=== PATIENT | female | born 1990 | race Hispanic/Latino ===

== ENCOUNTER 2017-07-27 06:22 | Day surgery (SDC) | payer OTHER ==
[~2017-07-27] VITALS: Ht 182.9 cm; Wt 145.6 kg
[~2017-07-27 06:22] MED LIST: CEPHALEXIN500 MG PO; DOXYCYCLINE HY100 MG PO; FLAGYL500 MG PO; IBUPROFEN600 MG PO; MOTRIN IB200 MG PO; NORCO 5-325 TA1 EACH PO; PERCOCET 5-3251 EACH PO
--- NOTE | 2017-07-27 07:01 | NUR ---
DOPPLER FOR FHTS 134 TO 154 MOSTLY. TO R OF UMBILICUS.
--- NOTE | 2017-07-27 10:38 | NUR ---
07/27/17 1038 Ivy Souza 0954 RESP EVEN AND UNLABORED. 1000 PT GIVEN SUPPOSITORY MEDICAITON PER EMAR AND MOVED UP IN BED WITH RN HELP. 1038 PT TALKING AND AWAKE. VSS. HEADED TO ELEAZAR.
[2017-07-27] MEDS ORDERED: NORCO 5-325 TA1 EACH PO (12:10)
[2017-07-27] MEDS ORDERED: INDOMETHACIN50 MG PO (12:11)
--- NOTE | 2017-07-27 13:05 | NUR ---
1255 AMB TO BR HAS SMALL AMT BLEEDING, GAVE LANA PAD. VOIDS 400MLS SLIGHTLY PINK TINGED. WANTS TO GO HOME. RATES PAIN 3/10. ONLY SORE BACK FROM SPINAL. IT HAS RESOLVED.
--- NOTE | 2017-07-27 13:07 | NUR ---
AT 1220 FHTS AT 150 S
--- NOTE | 2017-08-10 09:05 | OR ---
[facility] [address], [place] [address] Signed DATE OF OPERATION: 07/27/2017 SURGEON: Clarissa Barlow MD EXHIBITS CURATOR: Dr. Peng. PREOPERATIVE DIAGNOSES: Incompetent cervix, at 17 weeks and 5 days, and morbid obesity. POSTOPERATIVE DIAGNOSES: Incompetent cervix, at 17 weeks and 5 days, and morbid obesity. PROCEDURE: Darden cerclage. ANESTHESIA: Spinal with sedation. ESTIMATED BLOOD LOSS: 20 mL. DRAINS: None. INDICATIONS AND FINDINGS: The patient is a 26-year-old female, 2, para 0-0-1-0, who has had a previous loss at 19 weeks, who is being followed closely during this because of her history. Ultrasound was done yesterday, which showed a shortened cervix at 2.2 cm with some funneling. Because of her history and the shortening and funneling of the cervix, it was felt that she did carry the diagnosis of cervical incompetence. It was felt that cerclage at this juncture was indicated. The risks of the procedure were thoroughly discussed and the patient concurred with the decision. At the time of surgery, exam under anesthesia revealed a cervix, which was somewhat shortened at about 50% effaced, but closed and soft. DESCRIPTION OF PROCEDURE: The patient was prepped and draped in the dorsal lithotomy position. A weighted speculum was placed and this was a swan neck speculum given the patient's morbid obesity. The anterior and posterior lips of the cervix were grasped with ring forceps. Electronically Signed By: CLARISSA BARLOW MD 08/10/17 0905 PATIENT NAME: NEEMA DO OPERATIVE REPORT DATE OF : 89 PHYSICIAN: CLARISSA BARLOW MD REPORT #: [id number] REPORT IS CONFIDENTIAL AND NOT TO BE RELEASED WITHOUT AUTHORIZATION [facility] [address] [place] [id number] Signed A 3 mm Mersilene band was then placed in a pursestring manner beginning at 12 o'clock and coming around the patient's right side up to the left with serial bites. This suture was tied anteriorly at 12 o'clock and the ends of the suture were sutured together with a 0 silk suture to assure that the knots would not come untied in the future. Inspection of the stitch showed good length, was maintained. It was slightly less depth posteriorly, but still good length. The cervix was closed. At this point, the instruments removed and the patient was taken to the recovery room in good condition. All sponge and needle counts were correct. MD JULIUS Brewer/MANJITL /[id number] cc: Dr. Peng Electronically Signed By: CLARISSA BARLOW MD 08/10/17 0905 PATIENT NAME: NEEMA DO OPERATIVE REPORT DATE OF : 89 PHYSICIAN: CLARISSA BARLOW MD REPORT #: [id number] REPORT IS CONFIDENTIAL AND NOT TO BE RELEASED WITHOUT AUTHORIZATION
== END 2017-07-27 13:00 | disposition home or self-care (01) ==
LOC: DS 06:22
PROVIDERS: Obstetrics & Gynecology
PROC: 0UVC0ZZ Restriction of Cervix, Open Approach (ICD-10-PCS; principal; 2017-07-27 08:15)
DX: O34.32 Maternal care for cervical incompetence, second trimester (principal); O99.212 Obesity complicating pregnancy, second trimester; E66.01 Morbid (severe) obesity due to excess calories; O99.352 Diseases of the nervous system complicating pregnancy, second trimester; G43.909 Migraine, unspecified, not intractable, without status migrainosus; Z3A.17 17 weeks gestation of pregnancy; Z90.49 Acquired absence of other specified parts of digestive tract; Z68.42 Body mass index [BMI] 45.0-49.9, adult; Z79.899 Other long term (current) drug therapy
CPT/HCPCS: 00948; J1100; J2405; J2704; J2765; J3010; J7120

== ENCOUNTER 2017-08-12 10:49 | Inpatient (IN) | payer OTHER ==
[~2017-08-12] VITALS: Ht 177.8 cm; Wt 146.0 kg
[~2017-08-12 10:49] MED LIST changes: +INDOMETHACIN50 MG PO
--- NOTE | 2017-08-14 05:28 | NUR ---
I WAS CALLED IN TO PRAY WITH THIS PT. WHEN I ARRIVED, PATENTS MOM WAS HOLDING BABY. I PRAYED WITH FAMILY, THEN WAS TOLD THEY ARE ALEVISM SO I ASKED IF I COULD CALL ANYONE FOR THEM, THEY REQUESTED [facility]. SO I CALLED AND LEFT WORD WITH HIM.
--- NOTE | 2017-08-14 08:34 | NUR ---
FOLLOWING UP ON NEEDS IN [facility]. I CALLED FR K[facility], HAD TO LEAVE A MSG. FR SCHUSTER IS OUT OF TOWN AND FAHAD BETHEA WON'T BE IN UNTIL 1000. I TOOK ONE OF OUR [facility] BOXES DOWN FOR STAFF, AND MADE MYSELF AVAILABLE NEEDED
--- NOTE | 2017-08-14 08:40 | NUR ---
DR MCCOY FELT THAT PT WANTED TO REST NOW, AND I COULD WAIT TO CHECK IN ON THE FAMILY
== END 2017-08-14 14:20 | disposition home or self-care (01) | DRG 775 ==
LOC: FBCO 10:49 → FBC 11:40
PROVIDERS: ADMIT General Practice
PROC: 10E0XZZ Delivery of Products of Conception, External Approach (ICD-10-PCS; principal; 2017-08-14)
DX: O42.112 Preterm premature rupture of membranes, onset of labor more than 24 hours following rupture, second trimester (principal); O60.12X0 Preterm labor second trimester with preterm delivery second trimester, not applicable or unspecified; O34.32 Maternal care for cervical incompetence, second trimester; Z68.42 Body mass index [BMI] 45.0-49.9, adult; Z3A.20 20 weeks gestation of pregnancy; Z37.1 Single stillbirth; O99.214 Obesity complicating childbirth; E66.01 Morbid (severe) obesity due to excess calories
CPT/HCPCS: 36415; 76815; 81001; 84112; 85025; 85027; 85610; 85730; 99212; J0290; J1644; J2210; J2550; J2590; J3010; J7120